=== PATIENT | female | born 1950 | race Caucasian/White ===

== ENCOUNTER 2020-03-23 19:40 | Inpatient (IN) | payer MEDICARE, MEDICAID ==
[2020-03-23 23:47] VITALS: BP 147/67
[2020-03-23] MEDS ORDERED: Magnesium Hydroxide (MOM) 30 mL UDC PO PRN ×2 (23:47→23:54)
[2020-03-23] MEDS ORDERED: Maalox 30 mL Cup PO PRN ×2 (23:47→23:54)
[2020-03-24] MEDS ORDERED: Acetaminophen 500 MG TAB PO PRN (00:21)
[2020-03-24] MEDS ORDERED: GLUCAGON HCl 1 MG KIT IM PRN (00:42)
[2020-03-24] MEDS: INSULIN LISPRO SLIDING SCALE 100 UNITS/ML UNIT SUBQ SCH ×4 (06:33→20:40)
[2020-03-24] MEDS: Multivitamin Tab PO SCH (08:19)
--- NOTE | 2020-03-24 09:15 | Psychiatric Evaluation ---
DATE OF SERVICE: PSYCHIATRIC INITIAL EVALUATION AND MENTAL STATUS EXAM AGE: 70. SEX: Female. PHYSICIAN: Dr. Verde. CHIEF COMPLAINT: Agitation and irritable mood. HISTORY OF PRESENT ILLNESS: The patient is a 70-year-old female with history of what seems to be bipolar disorder. The patient has been agitated and in irritable mood in [facility] and has been yelling and screaming and was not able to follow any of staff directions and Dr. Schwartz transferred the patient to the hospital. Chart reviewed and the patient interviewed and discussed the patient's condition with the staff. The patient said "Dr. Schwartz sent me here because I have urinary tract infection." The patient is hyperverbal and she is easily irritable and agitated. The patient also seems to be slightly suspicious and paranoid. The patient also is depressed, but she denies any intention to harm herself or others. She also needs redirection. PAST PSYCHIATRIC HISTORY: The patient has history of what seems to be bipolar disorder, but currently she is not taking any psychotropic medications. PAST MEDICAL HISTORY: The patient has diabetes mellitus as well as arthritis. SOCIAL HISTORY: The patient is a , but also she had another relationship but from her current boyfriend who lives in [place], [place] for years. The patient has 1 son that lives in [place] and 1 daughter that lives close by her longterm. She denies any alcohol or other street drug use. ALLERGIES: No known allergies. MENTAL STATUS EXAMINATION: Anxious. Depressed mood. Sad affect. Thought processes are mainly goal directed. The patient denies any hallucinations or delusions. She denies any suicide or homicide. The patient is alert and oriented to time, place, person and situation. Intact immediate, recent and remote memories. Poor insight and poor judgment. Seems to be of average intelligence based on her verbal ability. ASSESSMENT: PRIMARY DIAGNOSES: Bipolar disorder, manic episode, moderate to severe, with psychotic features, diabetes mellitus. TREATMENT PLAN: We will monitor the patient's behavior and condition closely. Also, we will start the patient on Depakote and we will adjust the dose. Also, we will monitor her behavior. ESTIMATED LENGTH OF STAY: 5-7 days. PATIENT'S STRENGTHS AND WEAKNESSES: The patient's strength is clear, is that she seems to be in relatively fair health. Weaknesses are poor impulse control and her ineffective coping. AFTER DISCHARGE PLAN: The patient will return to [facility] and outpatient treatment and followup will continue there. CRITERIA FOR DISCHARGE: The patient will not be agitated and we will stabilize psychotropic medications and will establish outpatient treatment plans. [facility]# [id number]
[2020-03-25] MEDS: INSULIN LISPRO SLIDING SCALE 100 UNITS/ML UNIT SUBQ SCH ×6 (07:30→21:25)
[2020-03-25] MEDS: Multivitamin Tab PO SCH (08:10)
--- NOTE | 2020-03-25 10:08 | Progress Notes ---
DATE: 03/25/2020 SUBJECTIVE: Chart reviewed and the patient interviewed. Also discussed the patient's condition with the staff and reviewed records and labs. Also data reported that was provided by the patient's daughter. The patient is still having episodes of irritability and anxiety, but no major behavioral problems. The patient also is interacting more, but speech is slightly pressured. She also seems to be hyperactive. The patient also is suspicious and slightly paranoid. She also has mood swings. Otherwise, the patient is easier to redirect her and compliant with taking medications. The patient's gait is steady. Vital signs are stable and no new labs available for review. MENTAL STATUS EXAMINATION: Unkempt. Anxious. Going around the unit with hospital gown and pacing and needs redirections. Forgetful. Denies auditory or visual hallucinations or delusions and denies suicide or homicide. ASSESSMENT: The patient is still exhibiting manic behavior and agitation. TREATMENT PLAN: I started the patient on Depakote yesterday in a dose of 250 mg twice a day. We will continue same dose. We will also get Depakote blood level next Monday. Also, continue to monitor behavior and condition closely. ESTIMATED LENGTH OF STAY: 4-6 days. REASON TO CONTINUE HOSPITAL STAY: The patient is still exhibiting manic behavior and needs close monitoring. JOB# [id number]
[2020-03-26] MEDS: INSULIN LISPRO SLIDING SCALE 100 UNITS/ML UNIT SUBQ SCH ×4 (06:47→22:29)
[2020-03-26] MEDS: Multivitamin Tab PO SCH (08:46)
--- NOTE | 2020-03-26 09:58 | Progress Notes ---
DATE: 03/26/2020 SUBJECTIVE: Chart was reviewed and the patient was interviewed. Also discussed the patient's condition with the staff and reviewed records and labs. The patient's affect is slightly brighter, but the patient still has periods of agitation and irritability. The patient also has episodes of forgetfulness and difficulty remembering recent events. She also is still unkempt and personal hygiene is still poor. Otherwise, the patient is compliant with taking her medications and no side effects of medications. OBJECTIVE: Gait is steady. Vital signs are stable. LABORATORY DATA: No new labs available for review. MENTAL STATUS EXAMINATION: Anxious. Cooperative. Depressed mood. Thought processes are mainly goal directed. She denies hallucinations or delusions and she denies suicidal or homicidal ideations. ASSESSMENT: The patient is still exhibiting manic behavior and still needs close monitoring. TREATMENT PLAN: Continue monitoring her behavior and her condition closely. Also, continue Depakote at same dose. Also, continue working on her ineffective coping and her impulse control issue. [facility]# [id number]
--- NOTE | 2020-03-26 13:28 | History & Physical ---
ADMIT DATE: 03/25/2020 REASON FOR ADMISSION: Psychiatric disorders. HISTORY OF PRESENT ILLNESS: This is a 70-year-old female with underlying history of diabetes, who [facility], primarily for evaluation of behavioral disturbances. The patient was admitted by Dr. Verde for her psych evaluation and management. I was consulted for medical H and P. The patient denies any medical complaints or concerns. PAST MEDICAL HISTORY: Diabetes. PAST SURGICAL HISTORY: No significant past surgery. FAMILY HISTORY: None significant. SOCIAL HISTORY: Lives in a nursing facility. No alcohol, tobacco use. CURRENT MEDICATIONS: Per medication list. ALLERGIES: None. REVIEW OF SYSTEMS: As per HPI, 12-point system is negative. PHYSICAL EXAMINATION: VITAL SIGNS: Temperature 97.6, pulse 84, respirations 20, blood pressure 113/63, satting 97% on room air. Pain 0/10. HEENT: Unremarkable. HEART: S1, S2 normal. LUNGS: Clear to auscultation bilaterally. ABDOMEN: Soft, nontender, ____. EXTREMITIES: No edema. ASSESSMENT: 1. Diabetes. 2. Vitamin deficiency. 3. Mental ____ disorders. PLAN: The patient will continue on current treatment plan. Monitor blood sugars. Psych management by psychiatrist. Continue iron supplementations. The patient is medically stable to participate in activities of Geropsych unit. JOB# [id number]
[2020-03-27] MEDS: INSULIN LISPRO SLIDING SCALE 100 UNITS/ML UNIT SUBQ SCH ×4 (07:00→20:27)
[2020-03-27] MEDS: Multivitamin Tab PO SCH (08:14)
--- NOTE | 2020-03-27 19:04 | Progress Notes ---
DATE: SUBJECTIVE: Chart was reviewed and the patient interviewed. Also discussed the patient's condition with the staff and reviewed records and labs. The patient continued to exhibit manic behavior and restless. The patient also is still suspicious and is still slightly paranoid, but at the same time, no major behavioral problems. The patient also is calm and cooperative with her treatment. She is also compliant with taking her medications with no side effects of Depakote. Gait steady. Vital signs are stable. No new labs available for review. MENTAL STATUS EXAMINATION: Anxious. Cooperative. The patient denies any auditory or visual hallucinations or delusions. She denies any suicidal or homicidal ideations, but she still has episodes of agitation and irritability. ASSESSMENT: The patient still can be dangerous to others and still exhibiting manic behavior. TREATMENT PLAN: Depakote blood level will be done today. Continue monitoring her behavior and continue working on her impulse control and irritability. ESTIMATED LENGTH OF STAY: 2-4 days. REASON FOR CONTINUED HOSPITAL STAY: The patient is still exhibiting manic behavior and can be dangerous to others. [facility]# [id number]
[2020-03-28] MEDS: INSULIN LISPRO SLIDING SCALE 100 UNITS/ML UNIT SUBQ SCH ×4 (06:35→20:11)
[2020-03-28] MEDS: Multivitamin Tab PO SCH (08:46)
--- NOTE | 2020-03-29 03:04 | Progress Notes ---
DATE: 03/28/2020 PSYCHIATRIC FOLLOWUP NOTE SUBJECTIVE: The patient was seen and evaluated. The patient's chart was reviewed. IDENTIFYING DATA: A 70-year-old female with history of bipolar, was brought in here for aggression, agitation, screaming and yelling. Today on [id number] evaluation, the patient denies any side effects from the medication. The patient reports the current medications has helped in thoughts, become more stable. She ____ to be slightly suspicious through observing suspicious throughout the whole room, although more calm and cooperative. PHYSICAL EXAMINATION: More calm, cooperative, minimal suspicion. ASSESSMENT AND PLAN: History of bipolar. We will continue with primary psychiatrist's treatment plan and goals, as medication continue to reach steady state. Medication reconciliation were reviewed. Estimated stay between 2-3 days. JOB# [id number]
[2020-03-29] MEDS: INSULIN LISPRO SLIDING SCALE 100 UNITS/ML UNIT SUBQ SCH ×4 (06:34→20:39)
[2020-03-29] MEDS: Multivitamin Tab PO SCH (08:44)
--- NOTE | 2020-03-29 20:51 | Progress Notes ---
DATE: 03/29/2020 SUBJECTIVE: Today on [id number] evaluation, the patient reports no side effects of medication. She is reporting that her anxiety ____ that she came in with is improved much better, looking forward to going home. She is much more calmer with her treatment. MENTAL STATUS EXAMINATION: Calmer, less anxious. No SI or HI. ASSESSMENT AND PLAN: History of mood disorder, stabilized with the current medication regimen. We will continue ____ the medical team and primary field nurse case manager to continue assisting with safe disposition once further psychiatrically stabilized in the next 24-48 hours. JOB# [id number]
[2020-03-30] MEDS: INSULIN LISPRO SLIDING SCALE 100 UNITS/ML UNIT SUBQ SCH ×4 (06:31→20:09)
[2020-03-30] MEDS: Multivitamin Tab PO SCH (08:29)
--- NOTE | 2020-03-30 21:59 | Progress Notes ---
DATE: SUBJECTIVE: Chart reviewed and the patient interviewed. Also discussed the patient's condition with the staff and reviewed records and labs. The patient still has periods of being suspicious and paranoid and thinks that "the nurses don't like me." She also is still unkempt and she wants to stay in her room. Also, has severe mood swings and pressured speech. Also, compliance with medications is questionable and yesterday, the patient did not take Depakote except 1 incident of twice a day. Gait is steady. Vital signs are stable and no new labs available for review. MENTAL STATUS EXAMINATION: Unkempt. Anxious. Preoccupied. Suspicious and paranoid. Denies hallucinations or delusions and denies suicide or homicide. ASSESSMENT: The patient is still exhibiting manic behavior and is still agitated and paranoid. TREATMENT PLAN: We will increase Depakote to 500 mg twice a day. Depakote blood level that was done on 03/27/2020 came back to be 20. Also, continue Risperdal 2 mg twice a day. Also, working on her neelima and her compliance with taking her medications and continue to follow up. ESTIMATED LENGTH OF STAY: 2-4 days. REASON FOR CONTINUED HOSPITAL STAY: The patient is still exhibiting manic behavior and not compliant completely with her medications. JOB# [id number]
[2020-03-31] MEDS: INSULIN LISPRO SLIDING SCALE 100 UNITS/ML UNIT SUBQ SCH ×4 (06:31→20:30)
[2020-03-31] MEDS: Multivitamin Tab PO SCH (08:12)
--- NOTE | 2020-03-31 16:46 | Progress Notes ---
DATE: SUBJECTIVE: Chart reviewed and the patient interviewed. Also discussed the patient's condition with the staff and reviewed records and labs. The patient refused to take Depakote yesterday. The patient also is complaining that people are going to his room in the facility, but no reports from the staff facility of doing so. The patient also did not give me an exact reason for why she was refusing her Depakote, but after further discussion with her, the patient states that she will take it. The patient denies any hallucinations, but she is suspicious and paranoid. MENTAL STATUS EXAMINATION: Unkempt. Anxious. Labile affect. Thought processes are circumstantial, but no flight of ideas. The patient is still exhibiting manic behavior and circumstantial thought processes. ASSESSMENT: The patient is still exhibiting manic behavior and need to comply with medications. TREATMENT PLAN: The patient agreed to take Depakote. We will continue Depakote same dose. Also, continue to work on her mood swings and her irritability. ESTIMATED LENGTH OF STAY: 3-5 days. REASON FOR CONTINUED HOSPITAL STAY: The patient is still noncompliant with taking her medications and needs adjustment to her medicines. Also, need to work on her compliance. JOB# [id number]
[2020-04-01] MEDS: INSULIN LISPRO SLIDING SCALE 100 UNITS/ML UNIT SUBQ SCH ×4 (06:35→21:00)
--- NOTE | 2020-04-01 06:51 | Progress Notes ---
DATE: 04/01/2020 SUBJECTIVE: Chart reviewed and the patient interviewed. Also discussed the patient's condition with the staff and reviewed records and labs. The patient continued to have severe mood swings. The patient also is still restless and she is still while awake, pacing up and down and needs lots of redirections. The patient denies any intention to harm herself or others, but she is still easily irritable and easily agitated with severe mood swings. On the other hand, the patient did take Depakote yesterday and she has been taking it now, but still not sure if she would continue to take it on a regular basis. Gait is steady. Vital signs are stable and no new labs available for review. MENTAL STATUS EXAMINATION: Anxious. Cooperative. Irritable mood. Thought processes are circumstantial, but no flight of ideas. ASSESSMENT: The patient is still exhibiting manic behavior and also compliance with medications is an issue. TREATMENT PLAN: Continue to monitor her behavior and her condition closely. Also, continue Depakote 500 mg twice a day and continue to monitor her behavior and her condition closely. ESTIMATED LENGTH OF STAY: 1-3 days. REASON FOR CONTINUED HOSPITAL STAY: The patient is still exhibiting manic behavior and is still in irritable mood and agitated. [facility]# [id number]
[2020-04-01] MEDS: Multivitamin Tab PO SCH (08:30)
[2020-04-02] MEDS: INSULIN LISPRO SLIDING SCALE 100 UNITS/ML UNIT SUBQ SCH ×2 (06:37→11:34)
[2020-04-02] MEDS: Multivitamin Tab PO SCH (08:35)
--- NOTE | 2020-04-04 08:08 | Discharge Summary ---
DATE OF DISCHARGE: 04/02/2020 AGE: 70. SEX: Female. PHYSICIAN: Dr. Verde. FINAL DIAGNOSES: PRIMARY DIAGNOSES: Bipolar disorder, manic episode, severe, with psychotic features. MEDICAL DIAGNOSIS: Diabetes mellitus. REASON FOR HOSPITALIZATION: The patient was admitted to the hospital because of increased agitation and irritability. The patient was yelling and screaming and was not able to follow any of the staff directions in [facility]. HOSPITAL COURSE: The patient continued to exhibit manic behavior. The patient also was having episodes of yelling and screaming. The patient also was hyperverbal. The patient was started on Depakote and the dose adjusted to [address] Schwartz continued to monitor her blood sugar. Gradually, the patient was calmer. At certain time, the patient was refusing to take Depakote. Later on, the patient agreed that she should continue to take Depakote on a regular basis. The patient was not as aggressive or agitated and the patient was interacting more with others. The patient also was not suicidal or homicidal. PHYSICAL EXAMINATION: The patient showed that the patient had diabetes mellitus and Dr. Schwartz monitored her blood sugar closely. AFTER DISCHARGE PLANS: The patient discharged from the hospital, went to [facility]. Outpatient treatment and followup there. DISCHARGE ACTIVITY: As tolerated. DISCHARGE DIET: 1800 calorie diabetic diet. EXPECTED OUTCOME AFTER DISCHARGE: Fair if the patient continued to take psychotropic medications and follow up with discharge plans. [facility]# [id number]
== END 2020-04-02 13:09 | DRG 885 ==
LOC: GERO 19:40 → UNDOADMIN 19:40 → GERO 23:11
PROVIDERS: ADMIT Psychiatry & Neurology Psychiatry; ATTEND Psychiatry & Neurology Psychiatry
DX: F30.2 Manic episode, severe with psychotic symptoms (principal); E11.9 Type 2 diabetes mellitus without complications; E56.9 Vitamin deficiency, unspecified; M19.90 Unspecified osteoarthritis, unspecified site; Z79.4 Long term (current) use of insulin
CPT/HCPCS: 82948-90; 83036-90; G0410; Z7610